=== PATIENT | female | born 1980 | race Caucasian/White ===

== ENCOUNTER 2016-09-30 10:33 | Emergency (ER) | payer OTHER ==
--- NOTE | 2016-09-30 12:34 | XRAY Preliminary Report ---
Exam: XR Chest 2 View PA/LAT IMPRESSION: Normal 2-view chest radiography. [facility] SITE ID: [id number]
--- NOTE | 2016-09-30 12:37 | XRAY Report ---
EXAM: CHEST RADIOGRAPHY EXAM DATE: 09/30/2016 11:53 AM. CLINICAL HISTORY: Prolonged cough. COMPARISON: None. TECHNIQUE: 2 views. FINDINGS: Lungs/Pleura: No focal opacities evident. No significant peribronchial thickening. No pleural effusio n. No pneumothorax. No vascular congestion. Normal volumes. Mediastinum: Heart and mediastinal contours are unremarkable. Other: None. IMPRESSION: Normal 2-view chest radiography. [facility] Referring Provider Line: [phone] SITE ID: [id number]
[2016-09-30 12:49] VITALS: BP 119/74
--- NOTE | 2016-09-30 13:10 | ED Physician Documentation ---
History of Present Illness - Stated complaint Stated Complaint: COUGH - Chief complaint Chief Complaint: Resp - History obtained from History obtained from: Patient - History of Present Illness Timing: How many weeks ago (4) - Additonal information Additional information: The patient is a 36-year-old female who is visiting from [place], having arrived here 4 days ago. She reports nonproductive cough of one month's duration. She was recently treated with antibiotics for sinus infection. She is 5 weeks status post hysterectomy, and the cough produces pain in her lower abdomen. She denies fever, dyspnea, vomiting, or dysuria. She does not smoke cigarettes. She does report chronic back pain from sciatica, a condition which was made worse by sitting in the airplane for over 4 hours. Review of Systems Constitutional: denies: Fever Ears: denies: Ear pain Nose: denies: Congestion Throat: denies: Sore throat Cardiac: denies: Chest pain / pressure, Palpitations Respiratory: reports: Cough. denies: Dyspnea GI: reports: Abdominal Pain (Lower abdominal discomfort with coughing.). denies : Nausea, Vomiting : reports: Hysterectomy (5 weeks ago). denies: Dysuria Skin: denies: Rash Musculoskeletal: reports: Back pain. denies: Extremity swelling Neurologic: denies: Headache PD PAST MEDICAL HISTORY - Past Medical History Cardiovascular: None Neuro: Headache/migraine Endocrine/Autoimmune: None GI: Cholelithiasis - Past Surgical History Past Surgical History: Yes General: Cholecystectomy /[employer]: section, Hysterectomy - Present Medications Home Medications: Ambulatory Orders Medication Instructions Recorded Confirmed FLUoxetine [PROzac] 40 mg PO DAILY 10/07/15 09/30/16 Methocarbamol [Robaxin-750] 750 mg PO Q8HR PRN #20 tablet 10/07/15 09/30/16 Topiramate [Topamax] 100 mg PO DAILY 10/07/15 09/30/16 Cyclobenzaprine [Flexeril] 10 mg PO TID PRN #20 tablet 09/30/16 HYDROcod/ACETAM 5/325 [[place] 5/325] 1 - 2 ea PO Q6H PRN #15 tablet 09/30/16 Lorazepam [Ativan] 2.5 mg PO .FREQ 09/30/16 09/30/16 - Allergies Allergies/Adverse Reactions: Allergies Allergy/AdvReac Type Severity Reaction Status Date / Time Penicillins Allergy Hives Verified 09/30/16 10:39 - Social History Does the pt smoke?: No Smoking Status: Never smoker Does the pt drink ETOH?: Yes Does the pt have substance abuse?: No Additional Social History: Visiting here from [place]. - Immunizations Immunizations are current?: Yes PD ED PE NORMAL - Vitals Vital signs reviewed: Yes (normal) - General General: Alert and oriented X 3, Well developed/nourished - HEENT HEENT: Atraumatic, Ears normal, Pharynx benign - Neck Neck: No adenopathy, No JVD - Cardiac Cardiac: RRR, No murmur - Respiratory Respiratory: No respiratory distress, Clear bilaterally - Abdomen Abdomen: Soft, Non tender, No organomegaly, Other - Back Back: No CVA TTP, Other (Mild tenderness to palpation in the paralumbar region and over the left sacroiliac joint.) - Derm Derm: No rash - Extremities Extremities: No edema, No calf tenderness / cord - Neuro Neuro: Alert and oriented X 3, No motor deficit, No sensory deficit Results - Vitals Vitals: Oxygen O2 Source Room air - Rads (name of study) CXR Radiology: Prelim report reviewed, EMP read contemporaneously, See rad report ( Normal 2 view chest radiography.) PD MEDICAL DECISION MAKING - ED course Complexity details: reviewed results, re-evaluated patient, considered differential, d/w patient ED course: The underlying cause of the patient's cough is not clearly determined today. Her presentation does not suggest pneumonia, congestive heart failure, and I doubt pulmonary embolus. Chest x-ray is normal. In addition to her nagging cough, she complains of lower back pain which is an exacerbation of a chronic condition, as well as postsurgical abdominal discomfort exacerbated by coughing. Her examination reveals a benign abdomen. She is being discharged with prescription for Flexeril and for Vicodin, 15 tablets. I discussed with her the results of her workup, symptomatic treatment and outpatient follow-up, as well as potentially worrisome signs or symptoms that should prompt reevaluation in the emergency department. Departure - Departure Disposition: 01 Home, Self Care Clinical Impression: Cough in adult Low back pain Qualifiers: Chronicity: unspecified Back pain laterality: bilateral Sciatica presence: unspecified whether sciatica present Qualified Code(s): M54.5 - Low back pain Condition: Stable Instructions: ED Cough Chronic Cause Unkn, ED Low Back Pain Injury Prescriptions: Cyclobenzaprine [Flexeril] 10 mg PO TID PRN #20 tablet PRN Reason: Spasms HYDROcod/ACETAM 5/325 [[place] 5/325] 1 - 2 ea PO Q6H PRN #15 tablet PRN Reason: Pain Comments: Apply ice pack to her lower back intermittently for the next 3 or 4 days. You can use Vicodin as prescribed if needed for pain. He can use Flexeril as prescribed if needed for muscle spasms. Follow-up with your primary physician upon return to [place]. Return to the emergency department if you develop increasing cough or difficulty breathing, increasing pain, or otherwise worsening symptoms. Discharge Date/Time: 09/30/16 13:18
== END 2016-09-30 13:18 | disposition home or self-care (01) ==
LOC: ED 10:33
DX: R05 Cough (principal); M54.5 Low back pain; G89.29 Other chronic pain; Z90.710 Acquired absence of both cervix and uterus
CPT/HCPCS: 71020; 99283